=== PATIENT | male | born 1965 | race African-American/Black ===

== ENCOUNTER 2020-05-21 20:09 | Emergency (ER) | payer OTHER ==
[~2020-05-21] VITALS: Ht 182.9 cm; Wt 93.0 kg
[~2020-05-21 20:09] MED LIST: ALPHAGAN P10 ML OPHTHALMIC; ASPIRIN325 PO; COSOPT EYE DROPS5 ML OPHTHALMIC; INDOMETHACIN 2525 MG PO; INDOMETHACIN 5050 M1 PO; NORCO 5-325 TA1 EACH PO; TOBRADEX ST EYE5 ML OPHTHALMIC; ZPAK PO
[2020-05-21] MEDS ORDERED: COMBIGAN EYE DR10 ML LT. EYE (20:31)
[2020-05-21] MEDS ORDERED: DIAZEPAM 5 MG5 M1 PO (20:32)
[2020-05-21 21:16] LABS: ABSOLUTE NEUTROPHILS 5.1 thou/uL (1.4-8.2); BASOPHILS 0.8 % (0.0-2.0); HEMATOCRIT 44.6 % (42.0-52.0); HEMOGLOBIN 15.3 gm/dL (14.0-18.0); LYMPHOCYTES 25.2 % (24.0-44.0); MCH 31.4 pg (26.0-34.0); MCHC 34.2 g/dL (28.0-37.0); MONOCYTES 7.5 % (1.0-8.0); PLATELET COUNT 279 thou/uL (150-400); POLYS 65.5 % (36.0-66.0); RBC 4.85 mil/uL (4.50-6.00); RDW 13.2 % (10.5-14.5); WBC 7.9 thou/uL (4.0-11.0)
[2020-05-21] MEDS ORDERED: FISH OIL 1,0001 EAC9 PO (21:17)
[2020-05-21] MEDS ORDERED: SUPER THERAVIT1 EACH PO (21:17)
[2020-05-21 21:28] LABS: CREATININE 1.1 mg/dL (0.7-1.3); POTASSIUM 3.8 mmol/L (3.5-5.1)
[2020-05-21 22:11] VITALS: BP 167/117
--- NOTE | 2020-05-24 08:09 | EKG ---
[facility] [place] [address] ELECTROCARDIOGRAM REPORT Name: ROBIN WARREN Room #: DEP [facility].[place]#: [id number] Admission: 05/21/20 Attend Phys: Discharge: 05/21/20 Date of : 63 Report #: [id number] THIS REPORT FOR: cc: [facility] - No family physician/PCP FAM - No family physician/PCP Ricardo Carrasco MD [facility] THIS REPORT FOR: //name// [facility] ED Test Date: 2020-05-21 Test Time: 21:19:58 Pat Name: ROBIN WARREN Department: Room: Gender: Accounts Executive: [facility] : 1965 Requested By: Galen Hwang Order Number: [id number] MD: Ricardo Carrasco Measurements Intervals [place] Rate: 88 P: 62 MO: 151 QRS: 64 QRSD: 75 T: 241 QT: 360 QTc: 436 Interpretive Statements Sinus rhythm Probable LVH with secondary repol abnrm Anterior ST elevation, probably due to LVH Baseline wander in lead(s) I,III,aVL Compared to ECG 10/18/2011 02:02:37 Repolarization abnormality is less prominent Sinus tachycardia no longer present Electronically Signed On 05-24-2020 8:09:32 CDT by Ricardo Carrasco [email or web address] <ELECTRONICALLY SIGNED> By: Ricardo Carrasco MD, FAC 05/24/20808 18 18 Ricardo Carrasco MD, [facility] /EPI
== END 2020-05-21 22:12 | disposition home or self-care (01) ==
LOC: ER 20:09
PROVIDERS: Emergency Medicine
DX: R53.83 Other fatigue (principal); Z79.82 Long term (current) use of aspirin; Z79.899 Other long term (current) drug therapy